=== PATIENT | female | born 1965 | race Caucasian/White ===

== ENCOUNTER 2016-07-13 06:59 | Day surgery (SDC) | payer OTHER ==
[~2016-07-13 06:59] MED LIST: Lactated Ringers 1,000 ML IV SCH; Lidocaine 0.5% 50 ML SDV ONE; Lidocaine 1% 6 ML ONE; Lidocaine 1%/Sod Bicarbonate in NS 8.4% 1 ML Syringe IV PRN; Midazolam 1 MG/ML 2 ML SDV ONE; Ondansetron 4 MG/2 ML SDV ONE; Propofol 200 MG/20 ML SDV ONE; Sodium Bicarbonate 8.4% 50 MEQ/50 ML SDV ONE; Sodium Chloride 0.9% 10 ML Syringe FLUSH PRN; ceFAZolin 1 GM Vial ONE; fentaNYL 100 MCG/2 ML SDV ONE
[2016-07-13] MEDS ORDERED: Bupivacaine 0.25% 30 ML SDV ONE (07:06)
--- NOTE | 2016-07-13 07:50 | PCM.PREANE ---
Preanesthetic Assessment - Anesthesia/Transfusion/Family Hx Anesthesia History: Prior Anesthesia Without Reaction Family History of Anesthesia Reaction: No Transfusion History: Prior Transfusion Without Reaction - Review of Systems General: No Symptoms Pulmonary: Shortness of Breath (with exercise "lungs scared from cleaning product") Cardiovascular: No Symptoms Gastrointestinal: No symptoms Neurological: No Symptoms - Physical Assessment NPO Status Date: 07/12/16 NPO Status Time: 20:00 Pulse: 72 O2 Sat by Pulse Oximetry: 99 Respiratory Rate: 17 Blood Pressure: 131/82 Temperature: 37.0 C Height: 1.57 m Weight: 64.41 kg ASA Class: 2 Mental Status: Alert & Oriented x3 Airway Class: Mallampati = 1 Dentition: Reports: Buda(s) Thyro-Mental Finger Breadths: 3 Mouth Opening Finger Breadths: 3 ROM/Head Extension: Full Lungs: Clear to auscultation, Normal respiratory effort Cardiovascular: Regular Rate, Regular Rhythm, No Murmurs - Lab Values: on chart - Allergies Allergies/Adverse Reactions: Allergies Allergy/AdvReac Type Severity Reaction Status Date / Time Sulfa (Sulfonamide Allergy Rash Verified 07/12/16 15:10 Antibiotics) - Blood Blood Available: No Product(s) Available: None - Anesthesia Plan Pre-Op Medication Ordered: None - Acknowledgements Anesthesia Type Planned: CHERYLE Pt an Appropriate Candidate for the Planned Anesthesia: Yes Alternatives and Risks of Anesthesia Discussed w Pt/Guardian: Yes Pt/Guardian Understands and Agrees with Anesthesia Plan: Yes PreAnesthesia Questionnaire HEENT History: Reports: Allergic rhinitis Other HEENT History: wears glasses Cardiovascular History: Reports: None Other Respiratory History: seasonal allergies Gastrointestinal History: Reports: Gastritis Genitourinary History: Reports: Renal calculus [employer] MACHINE History: Reports: , Spontaneous Other OB/BYN History: miscarriage Musculoskeletal History: Reports: Neck pain, chronic Neurological History: Reports: None Psychiatric History: Reports: None Endocrine/Metabolic History: Reports: None Hematologic History: Reports: None Immunologic History: Reports: None Oncologic (Cancer) History: Reports: None Dermatologic History: Reports: None - Past Surgical History Head Surgeries/Procedures: Reports: None Female Surgical History: Reports: Hysterectomy - SUBSTANCE USE Smoking Status *Q: Never Smoker Recreational Drug Use History: No - HOME MEDS Home Medications: Home Meds Lutein [Natural Lutein] 20 mg PO DAILY 01/28/15 [History] Lysine 1,000 mg PO DAILY 01/28/15 [History] - CURRENT (IN HOUSE) MEDS Current Meds: Current Medications Lactated Ringer's (Ringers, Lactated) 1,000 mls @ 125 mls/hr IV ASDIRECTED KIRA Lidocaine/Sodium Bicarbonate (Buffered Lidocaine 1% In Ns 8.4%) 0.25 ml IV ONETIME PRN PRN Reason: Prior to IV Start Sodium Chloride (Saline Flush) 10 ml FLUSH ASDIRECTED PRN PRN Reason: Keep Vein Open Discontinued Medications Bupivacaine HCl (Marcaine 0.25%) Confirm Administered Dose 30 ml .ROUTE .STK- MED ONE Stop: 07/13/16 07:07 Cefazolin Sodium (Ancef) Confirm Administered Dose 2 gm .ROUTE .STK-MED ONE Stop: 07/13/16 06:21 Fentanyl (Sublimaze) Confirm Administered Dose 100 mcg .ROUTE .STK-MED ONE Stop: 07/13/16 06:22 Lidocaine HCl (Xylocaine-Mpf 1%) Confirm Administered Dose 6 mls @ as directed .ROUTE .STK-MED ONE Stop: 07/13/16 06:21 Lidocaine HCl (Xylocaine-Mpf 0.5%) Confirm Administered Dose 50 ml .ROUTE .STK- MED ONE Stop: 07/13/16 06:21 Midazolam HCl (Versed 1 Mg/Ml) Confirm Administered Dose 2 mg .ROUTE .STK-MED ONE Stop: 07/13/16 06:22 Ondansetron HCl (Zofran) Confirm Administered Dose 4 mg .ROUTE .STK-MED ONE Stop: 07/13/16 06:21 Propofol (Diprivan 20 Ml) Confirm Administered Dose 200 mg .ROUTE .STK-MED ONE Stop: 07/13/16 06:21 Sodium Bicarbonate (Sodium Bicarbonate 8.4%) Confirm Administered Dose 50 meq .ROUTE .STK-MED ONE Stop: 07/13/16 06:21 Preanesthetic Assessment - ANESTHESIA/TRANSFUSION/FAMILY HX Anesthesia/Transfusion History: Prior Anesthesia, Prior Transfusion Family History of Anesthesia Reaction: No - PHYSICAL ASSESSMENT Height: 1.57 m Weight: 64.41 kg - ALLERGIES Allergies/Adverse Reactions: Allergies Allergy/AdvReac Type Severity Reaction Status Date / Time Sulfa (Sulfonamide Allergy Rash Verified 07/12/16 15:10 Antibiotics)
[2016-07-13] MEDS ORDERED: diphenhydrAMINE 50 MG/ML SDV IVPUSH PRN (08:35)
--- NOTE | 2016-07-13 09:24 | PCM48HPAN ---
Post Anesthesia Note - EVALUATION WITHIN 48HRS OF ANESTHETIC Vital Signs in Normal Range: Yes Patient Participated in Evaluation: Yes Respiratory Function Stable: Yes Airway Patent: Yes Cardiovascular Function Stable: Yes Hydration Status Stable: Yes Pain Control Satisfactory: Yes Nausea and Vomiting Control Satisfactory: Yes Mental Status Recovered: Yes
[2016-07-13] MEDS ORDERED: fentaNYL 100 MCG/2 ML SDV IVPUSH PRN (09:35)
[2016-07-13] MEDS ORDERED: HYDROmorphone 0.5 MG/0.5 ML Syringe IVPUSH PRN (09:35)
[2016-07-13 09:53] VITALS: BP 112/67
--- NOTE | 2016-07-26 21:55 | OR ---
DATE OF OPERATION: 07/13/2016 SURGEON: Kendrick Morin MD PREOPERATIVE DIAGNOSIS: 1. Right long finger stenosing tenosynovitis. 2. Right long finger mucous cyst with periarticular osteophytes. POSTOPERATIVE DIAGNOSIS: 1. Right long finger stenosing tenosynovitis. 2. Right long finger mucous cyst with periarticular osteophytes. OPERATION PERFORMED: 1. Right long finger A1 madhu release. 2. Excision of right long finger mucous cyst. 3. Debridement of periarticular osteophytes, right long finger DIP joint. AIR TANK ASSEMBLER: hospital nursing assistant: Abdoulaye Aguilar. ESTIMATED BLOOD LOSS: Minimal. ANESTHESIA: [place] block. DESCRIPTION OF PROCEDURE: Ms. Barrow is a pleasant 51-year-old female, who presents with aforementioned symptoms. The patient presents for surgical intervention. The patient was brought to the operating room and underwent [place] blockade. The right upper extremity was prepped and draped in a standard orthopedic fashion. A surgical pause was performed identifying the appropriate patient and appropriate extremity to be operated upon. Preoperative antibiotics were given. A longitudinal incision was made between the digits and palmar crease proximal to the long finger. A sharp dissection was carried down through the skin and subcutaneous tissue. Hemostasis was obtained. Dissected down and divided the palmar fascia. Dissected down and identified the radial and ulnar neurovascular bundle. Identified the flexor tendon sheath. I opened it and released the A1 madhu entirely up to the C1 cruciate madhu, and released the flexor tendon sheath proximally. She had a modest amount of synovitis, which was debrided. The skin was closed with 5-0 nylon. Attention was directed then to dorsal aspect of the long finger. She had a small mucous cyst present. With a champagne shaped incision made, I sharply dissected down through the skin and subcutaneous tissue. Hemostasis was obtained. I dissected down, identified the mucous cyst. This was excised. This was emanating off the DIP joint. We ellipsed both the radial and ulnar aspects of the DIP joint. She had moderate synovitis and periarticular osteophytes, which were debrided. I irrigated the wound thoroughly. We closed the skin with 5-0 nylon. She was placed in soft dressing and brought to recovery in satisfactory condition. MMODAL /[id number]
== END 2016-07-13 10:10 | disposition home or self-care (01) ==
LOC: JD.SDS 06:59
PROVIDERS: ATTEND Orthopaedic Surgery
DX: M65.841 Other synovitis and tenosynovitis, right hand (principal); M71.341 Other bursal cyst, right hand; Z88.2 Allergy status to sulfonamides; Z90.710 Acquired absence of both cervix and uterus; Z79.899 Other long term (current) drug therapy; Z72.0 Tobacco use
CPT/HCPCS: 26055; 26160; J0690; J2250; J2405; J3010; J7120; 01810; J2704; J3490

== ENCOUNTER 2020-12-13 20:37 | Emergency (ER) | payer OTHER ==
[2020-12-13 21:12] VITALS: BP 155/93; PULSE 76
[2020-12-13] MEDS ORDERED: Ketorolac 30 MG/ML SDV IVPUSH STA (21:36)
[2020-12-13] MEDS ORDERED: Ondansetron 4 MG/2 ML SDV IVPUSH ONE (21:36)
[2020-12-13] MEDS ORDERED: HYDROmorphone 0.5 MG/0.5 ML Syringe IVPUSH ONE (21:36)
[2020-12-13] MEDS ORDERED: Tamsulosin 0.4 MG Cap.ER PO ONE (21:36)
[2020-12-13] MEDS ORDERED: Sodium Chloride 0.9% 1,000 ML IV SCH (21:45)
--- NOTE | 2020-12-13 21:46 | EDM.PDOC ---
ED HPI GENERAL MEDICAL PROBLEM - General Chief Complaint: Back Pain or Injury Stated Complaint: RIGHT [id number] PAIN Time Seen by Provider: 12/13/20 21:19 Source of Information: Reports: Patient, Family (Daughter) History Limitations: Reports: No Limitations - History of Present Illness INITIAL COMMENTS - FREE TEXT/NARRATIVE: Mrs. Barrow is a very pleasant 55-year-old woman who now presents the ED stating that she was woken around 04:00 this morning with a throbbing/stabbing pain felt in her right flank that radiates around to her right lower quadrant. She states that the pain has been coming and going, returning again tonight. When present, she states that the pain is constant, and she has not identified any modifiers. She has vomited 3 times today. No recent diarrhea. She states that her pain is relatively mild at this time. The patient states that she took a generic migraine medication this morning, and some Aleve around 16:00 this afternoon, which she believes helped. The patient states that she has a history of kidney stones 30 years ago, but cannot remember if her current symptoms are the same as those of 30 years ago. Here in the ED, the patient's initial BP is found to be modestly elevated at 155/93, otherwise, she is hemodynamically stable, afebrile, saturating 99% on room air. She appears to be relatively comfortable, in no acute distress. Prior to this morning, the patient denies having a recent fever, chills, sore throat, ear pain, nasal or sinus congestion, cough, dyspnea, chest pain, palpitations, nausea, vomiting, constipation, diarrhea, abdominal pain, urinary symptoms, recent weight gain or weight loss, recent bloody bowel movements or black bowel movements, recent joint aches, headaches, or rashes. The patient's PCP is Bailey Ram NP. She has received 2 COVID vaccinations. Right Lower Back Pain Score (Numeric/FACES): 8 - Related Data Allergies Allergy/AdvReac Type Severity Reaction Status Date / Time Sulfa (Sulfonamide Allergy Severe Rash Verified 12/13/20 20:57 Antibiotics) Home Meds: Home Meds Lutein [Natural Lutein] 20 mg PO DAILY 01/28/15 [History] Lysine 1,000 mg PO DAILY 01/28/15 [History] Cholecalciferol (Vitamin D3) [Vitamin D3] 1,000 mg PO DAILY 12/13/20 [History] Multivitamin [Daily Parth] 1 tab PO DAILY 12/13/20 [History] Past Medical History HEENT History: Reports: Allergic Rhinitis, Impaired Vision (wears glasses) Genitourinary History: Reports: Renal Calculus 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[employer] History: Reports: Spontaneous - Past Surgical History HEENT Surgical History: Reports: Oral Surgery (dental extractions) Female Surgical History: Reports: Hysterectomy (partial), Other (See Below) (Uterine polypectomy) Social & Family History - Tobacco Use Tobacco Use Status *Q: Never Tobacco User - Caffeine Use Caffeine Use: Reports: Coffee, Soda - Alcohol Use Alcohol Use History: Yes Alcohol Use Frequency: Socially - Recreational Drug Use Recreational Drug Use: No - Living Situation & Occupation Living situation: Reports: , with Spouse Occupation: Employed (assistant plant manager) ED ROS GENERAL - Review of Systems Review Of Systems: Comprehensive ROS is negative, except as noted in HPI. ED EXAM, RENAL/ - Physical Exam Exam: See Below Exam Limited By: No Limitations General Appearance: Alert, WD/WN, No Apparent Distress Eye Exam: Bilateral Eye: EOMI, Normal Inspection Ears: Normal External Exam, Hearing Grossly Normal Nose: Normal Inspection Throat/Mouth: Normal Inspection, Normal Lips, Normal Voice, No Airway Compromise Head: Atraumatic, Normocephalic Neck: Normal Inspection, Full Range of Motion Respiratory/Chest: No Respiratory Distress, Lungs Clear, Normal Breath Sounds, No Accessory Muscle Use Cardiovascular: Normal Peripheral Pulses, Regular Rate, Rhythm, No Edema, No Gallop, No JVD, No Murmur, No Rub GI/Abdominal: Normal Bowel Sounds, Soft, Non-Tender (including the RLQ), No Organomegaly, No Distention, No Abnormal Bruit, No Mass Back Exam: Normal Inspection, Full Range of Motion, CVA Tenderness (R). No: CVA Tenderness (L) Extremities: Normal Inspection, Normal Range of Motion, No Pedal Edema, Normal Capillary Refill Neurological: Alert, Oriented, Normal Cognition, No Motor/Sensory Deficits Psychiatric: Normal Affect Skin Exam: Warm, Dry, Intact, Normal Color, No Rash Course - Vital Signs Last Recorded V/S: Last Vital Signs Temp 36.4 C 12/13/20 21:11 Pulse 76 12/13/20 21:11 Resp 20 12/13/20 21:11 BP 155/93 H 12/13/20 21:11 Pulse Ox 99 12/13/20 21:11 - Orders/Labs/Meds Orders: Active Orders 24 hr Category Date Time Status Strain Urine [RC] ASDIRECTED Care 12/13/20 23:11 Active Abdomen Pelvis wo Cont [CT] Stat Exams 12/13/20 21:36 Taken Sodium Chloride 0.9% [Normal Saline] 1,000 ml Med 12/13/20 21:45 Active IV ASDIRECTED Medication Orders Sodium Chloride (Normal Saline) 1,000 mls @ 150 mls/hr IV ASDIRECTED KIRA Last Admin: 12/13/20 21:54 Dose: 150 mls/hr Documented by: JESSENIA Labs: Laboratory Tests 12/13/20 Range/Units 21:05 Urine Color Yellow (Yellow) Urine Appearance Cloudy H (Clear) Urine pH 8.5 H (5.0-8.0) Ur Specific [place] 1.020 (1.005-1.030) Urine Protein Negative (Negative) Urine Glucose (UA) Negative (Negative) Urine Ketones 1+ H (Negative) Urine Occult Blood 2+ H (Negative) Urine Nitrite Negative (Negative) Urine Bilirubin Negative (Negative) Urine Urobilinogen 0.2 (0.2-1.0) Ur Leukocyte Esterase Negative (Negative) Urine RBC 30-40 H (0-5) /hpf Urine WBC 0-5 (0-5) /hpf Ur Squamous Epith Cells 0-5 (0-5) /hpf Amorphous Sediment Moderate H (NOT SEEN) /hpf Urine Bacteria Moderate H (FEW) /hpf Urine Mucus Few (FEW) /hpf Meds: Medications Generic Name Dose Route Start Last Admin Trade Name Freq PRN Reason Stop Dose Admin Sodium Chloride 1,000 mls @ 150 mls/hr 12/13/20 21:45 12/13/20 21:54 Normal Saline IV 150 mls/hr ASDIRECTED KIRA Administration Discontinued Medications Generic Name Dose Route Start Last Admin Trade Name Freq PRN Reason Stop Dose Admin Hydromorphone HCl 0.5 mg 12/13/20 21:36 12/13/20 21:54 Hydromorphone 0.5 Mg/0.5 Ml Syringe IVPUSH 12/13/20 21:37 0.5 mg ONETIME ONE Administration Ketorolac Tromethamine 30 mg 12/13/20 21:36 12/13/20 21:54 Ketorolac 30 Mg/Ml Sdv IVPUSH 12/13/20 21:37 30 mg ONETIME STA Administration Ondansetron HCl 4 mg 12/13/20 21:36 12/13/20 21:54 Ondansetron 4 Mg/2 Ml Sdv IVPUSH 12/13/20 21:37 4 mg ONETIME ONE Administration Tamsulosin HCl 0.4 mg 12/13/20 21:36 12/13/20 21:54 Tamsulosin 0.4 Mg Cap.Er PO 12/13/20 21:37 0.4 mg ONETIME ONE Administration - Re-Assessments/Exams Free Text/Narrative Re-Assessment/Exam: 12/13/20 21:40 The patient's history and physical examination are most consistent with a right ureterolith. A urinalysis was ordered at triage, and I have added a CT of the abdomen and pelvis without contrast. In the meantime, the patient will be treated with IV Dilaudid, oral tamsulosin, IV fluid, IV Toradol, and IV Zofran. 12/13/20 22:44 The patient's urinalysis is remarkable for cloudy appearance, 2+ occult blood with 30-40 RBCs, leukocyte esterase negative with 0-5 WBCs, nitrate negative with moderate bacteria, and 0-5 squamous epithelial cells. 12/13/20 23:10 CT of the abdomen and pelvis without contrast is read by [facility]cierra as: 1. Moderate right hydronephrosis secondary to 4 mm proximal right ureteral calculus. 2. Remainder of findings described as above. 12/13/20 23:18 Test results discussed with the patient and her daughter. As above, the patient has a right ureterolith. I will discharge her home with recommendation that she take [id number] ibuprofen around the clock. She will be given [employer] [facility]'s prescriptions for [place], tamsulosin, and Zofran ODT. She is to stay adequately hydrated. She is to strain all of her urine. I will give her a referral to Dr. Franklin, in the event that her pain does not improve within about a week. Departure - Departure Time of Disposition: 23:19 Disposition: Home, Self-Care 01 Condition: Good Clinical Impression: Ureterolithiasis - Discharge Information *PRESCRIPTION DRUG MONITORING PROGRAM REVIEWED*: Not Applicable *COPY OF PRESCRIPTION DRUG MONITORING REPORT IN PATIENT RJ: Not Applicable Referrals: Bailey Ram NP [Primary Care Provider] - Tarun Franklin MD [Ordering Only Provider] - Forms: ED Department Discharge Additional Instructions: You were seen in the emergency room after waking up with right flank pain radiating to your lower right abdomen. Work-up in the ER included a urinalysis and a CT of your abdomen and pelvis. Your urinalysis showed no sign of an infection. Your CT scan confirmed a 4 mm stone in your upper right ureter. Based on the size and location of the stone, you will most likely pass it on your own, however, it may take some time. We recommend that you stay adequately hydrated. It does not really matter what type of fluid you drink. Strain all of your urine. If you capture the stone, take it to your PCP for analysis. We recommend that you take baom-hvj-wivnazz ibuprofen, 3 tablets (600 mg) with food, every 8 hours, sxkovq-hvg-tzjrt initially, then as needed for discomfort. In addition to ibuprofen, you may also take 1 to 2 tablets of the prescription opioid [place] up to every 6 hours, as needed for pain not relieved by ibuprofen. If you take [place], do not drive or operate heavy machinery for 12 hours afterwards. [place] may cause constipation, so consider taking a stool softener. Take 1 tablet of the anti-spasm medicine tamsulosin (Flomax) every evening, starting tomorrow evening, 12/14/2020, as needed for discomfort. You may dissolve 1 tablet of the anti-nausea medicine Zofran ODT on your tongue up to every 8 hours, as needed for nausea/vomiting. If you are still having pain after 1 week, please follow-up with the Urologist Dr. Tarun Franklin, in [place]. If any other problems, please do not hesitate to return to the ER. Sepsis Event Note (ED) - Focused Exam Vital Signs: Vital Signs Temp Pulse Resp BP Pulse Ox 12/13/20 21:11 36.4 C 76 20 155/93 H 99 - My Orders Last 24 Hours: My Active Orders 12/13/20 21:36 Abdomen Pelvis wo Cont [CT] Stat 12/13/20 21:45 Sodium Chloride 0.9% [Normal Saline] 1,000 ml IV ASDIRECTED 12/13/20 23:11 Strain Urine [RC] ASDIRECTED - Assessment/Plan Last 24 Hours: My Active Orders 12/13/20 21:36 Abdomen Pelvis wo Cont [CT] Stat 12/13/20 21:45 Sodium Chloride 0.9% [Normal Saline] 1,000 ml IV ASDIRECTED 12/13/20 23:11 Strain Urine [RC] ASDIRECTED
--- NOTE | 2020-12-14 09:32 | CT ---
CT abdomen and pelvis Technique: Multiple axial sections were obtained from above the dome of the diaphragm inferiorly through the pubic symphysis. Intravenous and oral contrast were not utilized. Reconstructed coronal and sagittal images were obtained. Comparison: No previous abdominal imaging is available. Findings: Right kidney shows mild hydronephrosis. This finding is caused by a 4 mm proximal right ureteral calculus. Other portions of the right ureter show no additional calcifications. Left ureter shows no abnormal calcifications. Several small nonobstructing calculi are seen within both kidneys. Cyst is noted within the right kidney measuring 1.5 cm. Lung window settings were obtained which show no acute abnormality. Liver shows a minimal low-density lesion within the right lobe measuring 4 mm which is statistically due to a cyst. Spleen size is normal. Adrenal glands show no nodule. Pancreas appears within normal limits. Gallbladder contains no calcified gallstones. Aorta shows no aneurysm. No retroperitoneal adenopathy or mesenteric abnormalities are seen. Appendix is seen which is normal. No pelvic mass or adenopathy is seen. Bone window settings were reviewed. Vacuum disc phenomena is noted within the L5-S1 level. No acute osseous abnormality is appreciated. Impression: 1. Right-sided hydronephrosis which is caused by a 4 mm proximal obstructing calculus. 2. Small cyst within the left kidney. Several small nonobstructing calculi are seen within both kidneys. 3. Other nonacute findings as noted above. Diagnostic code #3 I agree with preliminary report from [facility], finalized on 12/13/20, 11:33 PM CDT, code 1
== END 2020-12-13 23:45 | disposition home or self-care (01) ==
LOC: JD.ED 20:37
DX: N13.2 Hydronephrosis with renal and ureteral calculous obstruction (principal); Z88.2 Allergy status to sulfonamides
CPT/HCPCS: 74176; 81001; 96374; 96375; 99284; A9270; J1170; J1885; J2405; J7030